=== PATIENT | female | born 1995 | race Caucasian/White ===

== ENCOUNTER 2024-03-04 18:11 | Emergency (ER) | payer SELFPAY ==
[~2024-03-04] VITALS: Ht 160 cm; Wt 77.2 kg
[2024-03-04 18:14] VITALS: BP 144/97; TEMP 97.9; O2SAT 98
[2024-03-04] MEDS ORDERED: NAPR-1405 PO (18:19)
== END 2024-03-04 19:56 | disposition left against medical advice (07) ==
LOC: M ED 18:11
DX: Z53.21 Procedure and treatment not carried out due to patient leaving prior to being seen by health care provider (principal)